=== PATIENT | female | born 1935 | race Caucasian/White ===

== ENCOUNTER 2018-08-20 05:56 | Day surgery (SDC) | payer OTHER ==
[~2018-08-20] VITALS: Ht 154.9 cm; Wt 57.2 kg
[2018-08-20] MEDS ORDERED: CEFAZOLIN SOD 1 GM in D5W 50 ML IV ONE (07:00)
[2018-08-20] MEDS ORDERED: IOHEXOL 50 ML IV ONE (07:17)
[2018-08-20] MEDS ORDERED: LR 1,000 ML IV.SOLN IV ONE (07:40)
[2018-08-20] MEDS ORDERED: GLYCOPYRROLATE 0.2 MG/ML VIAL IJ ONE (07:40)
[2018-08-20] MEDS ORDERED: ROCURONIUM BROMIDE 10 MG/ML (ZEMURON) IV ONE (07:40)
[2018-08-20] MEDS ORDERED: EPINEPHrine 1 MG/ML AMP IV ONE (07:40)
[2018-08-20] MEDS ORDERED: NS 1000 ML IV.SOLN IV ONE (07:40)
[2018-08-20] MEDS ORDERED: MIDAZOLAM HCL 5 MG/5 ML VIAL IVP ONE (07:40)
[2018-08-20] MEDS ORDERED: SEVOFLURANE 15 MIN GAS INH ONE (07:40)
[2018-08-20] MEDS ORDERED: fentaNYL CITRATE 250 MCG/5 ML AMP IV ONE (07:40)
[2018-08-20] MEDS ORDERED: NEOSTIGMINE METHYLSULFATE 1 MG/ML, 10 ML VIAL IVP ONE (07:40)
[2018-08-20] MEDS ORDERED: PROPOFOL 200MG/ 20ML VIAL (DIPRIVAN) IV ONE (07:40)
[2018-08-20] MEDS ORDERED: ONDANSETRON HCL 4 MG/2 ML VIAL IVP ONE (07:40)
[2018-08-20] MEDS ORDERED: BUPIVACAINE /PF 0.25% 30 ML VIAL INJ ONE (07:40)
[2018-08-20] MEDS ORDERED: NS IRRIG SOLN 1000 ML IR ONE (07:40)
[2018-08-20] MEDS ORDERED: LR 1,000 ML IV SCH (08:15)
[2018-08-20] MEDS ORDERED: METOCLOPRAMIDE HCL 10 MG/2 ML VIAL IVP PRN (08:15)
[2018-08-20] MEDS ORDERED: MORPHINE 4 MG/ML INJ. SYRINGE IVP PRN ×3 (08:15)
[2018-08-20] MEDS ORDERED: D5/0.45 NS 1,000 ML IV SCH (08:35)
[2018-08-20] MEDS ORDERED: HYDROmorphone 2 MG/ML VIAL IVP PRN (08:45)
[2018-08-20] MEDS ORDERED: HYDROcodone/ACETAMIN 5-325 MG TAB (NORCO/ VICODIN) PO PRN ×2 (08:45)
[2018-08-20] MEDS ORDERED: HYDROcodone/ACETAMIN 10-325 MG TAB ONE (09:46)
[2018-08-20] MEDS ORDERED: HYDROcodone/ACETAMIN 5-325 MG TAB (NORCO/ VICODIN) ONE (09:49)
[2018-08-20 10:33] VITALS: BP_SYST 146
[2018-08-20] MEDS ORDERED: METOCLOPRAMIDE HCL 10 MG/2 ML VIAL ONE (12:01)
== END 2018-08-20 12:30 | disposition home or self-care (01) ==
LOC: SDS 05:56 → SMU 05:57 → SDS 12:30
PROVIDERS: ATTEND Colon & Rectal Surgery
DX: K80.10 Calculus of gallbladder with chronic cholecystitis without obstruction (principal); E78.5 Hyperlipidemia, unspecified; J84.9 Interstitial pulmonary disease, unspecified; I48.0 Paroxysmal atrial fibrillation; D69.6 Thrombocytopenia, unspecified; Z98.49 Cataract extraction status, unspecified eye; Z90.710 Acquired absence of both cervix and uterus; Z98.890 Other specified postprocedural states; Z80.1 Family history of malignant neoplasm of trachea, bronchus and lung; Z79.899 Other long term (current) drug therapy; I25.10 Atherosclerotic heart disease of native coronary artery without angina pectoris; G62.9 Polyneuropathy, unspecified; K21.9 Gastro-esophageal reflux disease without esophagitis; M19.90 Unspecified osteoarthritis, unspecified site; M81.0 Age-related osteoporosis without current pathological fracture
CPT/HCPCS: 47563; 74300; 88304; C1727; C1758; J0171; J0690; J2250; J2405; J2704; J2710; J2765; J3010; J3490 ×2; J7030; J7060; J7120; Q9967